=== PATIENT | female | born 1985 | race Caucasian/White ===

== ENCOUNTER 2020-05-19 11:54 | Outpatient (CLI) | payer OTHER, SELFPAY ==
[2020-05-19 19:23] LABS: T4 Thyroxine 9.57 ug/dL (5.53-11.0)
== END 2020-05-19 11:55 | disposition home or self-care (01) ==
LOC: ANHBWCLAB 11:56
PROVIDERS: PCP Family Medicine; Visit Provider Obstetrics & Gynecology
DX: E04.9 Nontoxic goiter, unspecified (principal)
CPT/HCPCS: 36415; 84436; 84443